=== PATIENT | male | born 1995 | race Caucasian/White ===

== ENCOUNTER 2018-03-07 23:09 | Emergency (ER) | payer OTHER ==
[2018-03-07] MEDS ORDERED: IPRATROPIUM-ALBUTEROL 3 ML NEB INHALATION STA (23:18)
[2018-03-07] MEDS ORDERED: methylPREDNISolone SOD SUCCI 125 MG/2 ML VIAL IM ONE (23:18)
--- NOTE | 2018-03-07 23:50 | XR ---
EXAMINATION TYPE: XR chest 2V DATE OF EXAM: 03/07/2018 COMPARISON: 04/04/2010 HISTORY: Asthma. Chest pain TECHNIQUE: Frontal and lateral views of the chest are obtained. FINDINGS: Heart and mediastinum are normal. Lungs are clear. Diaphragm is normal. Bony thorax appear s normal. IMPRESSION: Normal chest. No change.
--- NOTE | 2018-03-08 00:16 | ED ---
SOB HPI - General Source: patient Mode of arrival: ambulatory Limitations: no limitations <Theresa Hare - Last Filed: 03/08/18 04:02> <Genesis Jackson - Last Filed: 03/08/18 06:01> - General Chief Complaint: Shortness of Breath Stated Complaint: Asthma Attack Time Seen by Provider: 03/07/18 23:16 - History of Present Illness Initial Comments: 22-year-old male patient presents to the emergency department today for complaints of shortness of breath and wheezing. Patient states that he was about to go to bed when he started to have difficulty. States that he was treated for asthma as a child but seemed to grow out of it. Patient states he has not been sick, denies any cough, congestion, or sore throat. Denies any fevers or chills. States that he did not have any of his old medications left for asthma so he presented here for further evaluation. He denies any exposure to new substances including foods, medications, creams, lotions, or soaps. Denies any rash or itching. Denies any lip or tongue swelling. Patient denies any recent chest pain, abdominal pain, nausea, vomiting, diarrhea, constipation , back pain, numbness, tingling, dizziness, weakness, hematuria, dysuria, urinary urgency, urinary frequency, headache, visual changes, or any other complaints. (Theresa Hare) - Related Data Home Medications Medication Instructions Recorded Confirmed Cyclobenzaprine [Flexeril] 10 mg PO TID PRN 09/25/14 09/25/14 HYDROcodone/APAP 5-325MG [[place] 5] 1 each PO Q6HR PRN 09/25/14 09/25/14 methylPREDNISolone Dose Pack 4 mg PO DIRECTED 09/25/14 09/25/14 [Medrol Dose Pack] Previous Rx's Medication Instructions Recorded Albuterol Inhaler [Ventolin Hfa 1 - 2 puff INHALATION RT-Q6H PRN 03/08/18 Inhaler] #1 inhaler Ipratropium-Albuterol Nebulize 3 ml INHALATION Q4H PRN #30 neb 03/08/18 [Duoneb 0.5 mg-3 mg/3 ml Soln] predniSONE 50 mg PO DAILY #5 tablet 03/08/18 Allergies Allergy/AdvReac Type Severity Reaction Status Date / Time No Known Allergies Allergy Verified 03/07/18 23:14 Review of Systems ROS Other: All systems not noted in ROS Statement are negative. <Theresa Hare - Last Filed: 03/08/18 04:02> ROS Other: All systems not noted in ROS Statement are negative. <JacksonGenesis P - Last Filed: 03/08/18 06:01> ROS Statement: Those systems with pertinent positive or pertinent negative responses have been documented in the HPI. Past Medical History Past Medical History: Asthma History of Any Multi-Drug Resistant Organisms: None Reported Past Surgical History: No Surgical Hx Reported Past Psychological History: No Psychological Hx Reported Smoking Status: Never smoker Past Alcohol Use History: None Reported Past Drug Use History: None Reported <Theresa Hare - Last Filed: 03/08/18 04:02> General Exam Limitations: no limitations General appearance: alert, in no apparent distress, other (This is a well- developed, well-nourished adult male patient in no acute distress. Vital signs upon presentation are temperature 97.7F, pulse 85, respirations 28, blood pressure 130/76, pulse ox 98% on room air.) Eye exam: Present: normal appearance, PERRL, EOMI. Absent: scleral icterus, conjunctival injection, periorbital swelling ENT exam: Present: normal exam, normal oropharynx, mucous membranes moist, TM's normal bilaterally Respiratory exam: Present: wheezes (Mild expiratory wheezing to all posterior lung randolph), other (Tachypnea, short of breath). Absent: normal lung sounds bilaterally, respiratory distress, rales, rhonchi, stridor Cardiovascular Exam: Present: regular rate, normal rhythm, normal heart sounds. Absent: systolic murmur, diastolic murmur, rubs, gallop, clicks GI/Abdominal exam: Present: soft, normal bowel sounds. Absent: distended, tenderness, guarding, rebound, rigid Neurological exam: Present: alert, oriented X3, CN II-XII intact Psychiatric exam: Present: normal affect, normal mood Skin exam: Present: warm, dry, intact, normal color. Absent: rash <Theersa Hare - Last Filed: 03/08/18 04:02> Vital Signs 03/07/18 03/07/18 03/07/18 23:12 23:27 23:32 Temperature 97.7 F Pulse Rate 85 88 Respiratory 28 H 26 H Rate Blood Pressure 130/76 O2 Sat by Pulse 98 Oximetry 03/07/18 03/08/18 23:36 00:46 Temperature 98.3 F Pulse Rate 90 80 Respiratory 20 Rate Blood Pressure 135/71 O2 Sat by Pulse 100 Oximetry Medical Decision Making - Radiology Data Radiology results: report reviewed, image reviewed <Theresa Hare - Last Filed: 03/08/18 04:02> <Genesis Jackson - Last Filed: 03/08/18 06:01> - Medical Decision Making 22-year-old male patient presented to the emergency department today for complaints of shortness of breath and wheezing. Physical examination did reveal mild expiratory wheezing to all posterior lung randolph. Patient did appear short of breath. He was able to speak in full sentences. Patient is afebrile, oxygen saturation 98-100% on room air. Patient did receive IM dose of Solu-Medrol and DuoNeb breathing treatment. Upon reevaluation patient states that he feels back to normal. Patient will be discharged to follow-up with his primary care physician for reevaluation in 1-2 days. We'll give prescription for prednisone and DuoNeb treatments for home, he does have a nebulizer machine. Return parameters were discussed in detail. He verbalizes understanding and agrees with this plan. (Theresa Hare) I was available for consultation in the emergency department. The history and physical exam were done by the midlevel provider. I was consulted for this patient's care. I reviewed the case with the midlevel provider and based on their presentation of the patient, I agree with the assessment, medical decision making and plan of care as documented. (Genesis Jackson) - Radiology Data Two-view x-ray of the chest is obtained. Heart mediastinum are normal. Lungs are clear. Diaphragm is normal. Bony thorax appears normal. Impression by Dr. Wagoner shows normal chest with no change. (Theresa Hare) Disposition Is patient prescribed a controlled substance at d/c from ED?: No Time of Disposition: 00:14 <Theresa Hare - Last Filed: 03/08/18 04:02> <Genesis Jackson - Last Filed: 03/08/18 06:01> Clinical Impression: Asthma attack Disposition: HOME SELF-CARE Condition: Good Instructions: Asthma (ED) Additional Instructions: Complete steroid prescription in full. Use breathing treatments every 4-6 hours as needed. Follow-up with your primary care physician for recheck in 1-2 days. Return here immediately for any new, worsening, or concerning symptoms. Prescriptions: Albuterol Inhaler [Ventolin Hfa Inhaler] 1 - 2 puff INHALATION RT-Q6H PRN #1 inhaler PRN Reason: Wheezing Ipratropium-Albuterol Nebulize [Duoneb 0.5 mg-3 mg/3 ml Soln] 3 ml INHALATION Q4H PRN #30 neb PRN Reason: Wheezing predniSONE 50 mg PO DAILY #5 tablet Referrals: Aggie Wheeler MD [STAFF PHYSICIAN] - 1-2 days
[2018-03-08 00:47] VITALS: BP 135/71; PULSE 80; RESP 20; TEMP 98.3
== END 2018-03-08 00:47 | disposition home or self-care (01) ==
LOC: EC 23:09
DX: J45.909 Unspecified asthma, uncomplicated (principal); Z79.899 Other long term (current) drug therapy
CPT/HCPCS: 94640; 71046; 99285; 96372; J2930